=== PATIENT | male | born 2000 | race Caucasian/White ===

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

== ENCOUNTER 2023-07-22 15:31 | Emergency (ER) | payer OTHER ==
[~2023-07-22] VITALS: Ht 170.2 cm; Wt 89.9 kg
[~2023-07-22 15:31] MED LIST: IBUP80TA PO; NAPR-885 PO; OSEL75CA PO; TYLE325T5 PO
[2023-07-22] MEDS ORDERED: LIDOCAINE 2% MDV 20ML VIAL SC ONE (16:30)
[2023-07-22 17:00] VITALS: TEMP 98.4
[2023-07-22 19:32] VITALS: BP 144/74; O2SAT 99
== END 2023-07-22 19:34 | disposition home or self-care (01) ==
LOC: M ED 15:31
DX: S66.127A Laceration of flexor muscle, fascia and tendon of left little finger at wrist and hand level, initial encounter (principal); W26.0XXA Contact with knife, initial encounter; Y92.009 Unspecified place in unspecified non-institutional (private) residence as the place of occurrence of the external cause; Y93.G9 Activity, other involving cooking and grilling; Z79.899 Other long term (current) drug therapy

== ENCOUNTER → 2023-07-24 | Outpatient (CLI) | payer OTHER ==
[~2023-07-24] MED LIST changes: +PERC5TAB12 PO
== END ==
LOC: M SOG 13:54
PROVIDERS: ATTEND Orthopaedic Surgery Hand Surgery
DX: M79.644 Pain in right finger(s) (principal)

== ENCOUNTER 2023-07-25 13:40 | Day surgery (SDC) | payer OTHER ==
[~2023-07-25] VITALS: Ht 170.2 cm; Wt 90.3 kg
[~2023-07-25 13:40] MED LIST changes: -PERC5TAB12 PO
[2023-07-25] MEDS ORDERED: LR 1,000 ML IV SCH ×2 (14:20→19:00)
[2023-07-25] MEDS ORDERED: BACITRACIN OINTMENT 30GM TUBE As Ordered ONE (16:26)
[2023-07-25] MEDS ORDERED: MIDAZOLAM INJ 2MG/2ML VIAL As Ordered ONE (16:28)
[2023-07-25] MEDS ORDERED: KETOROLAC 60MG 2ML VIAL As Ordered ONE (16:29)
[2023-07-25] MEDS ORDERED: LIDOCAINE 2% 100MG/5ML SDV (FOR ANES.) As Ordered ONE (16:29)
[2023-07-25] MEDS ORDERED: propofoL 200 MG/20 ML VIAL As Ordered ONE (16:29)
[2023-07-25] MEDS ORDERED: ACETAMINOPHEN 1000MG 100ML IV BAG As Ordered ONE (16:29)
[2023-07-25] MEDS ORDERED: ONDANSETRON 4MG 2ML VIAL As Ordered ONE (16:29)
[2023-07-25] MEDS ORDERED: fentaNYL 100 MCG/2 ML INJECTION As Ordered ONE (16:29)
[2023-07-25] MEDS ORDERED: ceFAZolin 2 GM/D5W 50 ML IV BAG As Ordered ONE (16:38)
[2023-07-25] MEDS ORDERED: HYDROmorphone HCL 2MG/ML 1ML VIAL As Ordered ONE (18:35)
[2023-07-25] MEDS ORDERED: ONDANSETRON 4MG 2ML VIAL IV PRN (19:00)
[2023-07-25] MEDS ORDERED: HYDROMORPHONE HCL 0.5 MG/ 0.5 ML SYRINGE IV PRN (19:00)
[2023-07-25] MEDS ORDERED: oxyCODONE 5MG TAB PO PRN (19:00)
[2023-07-25] MEDS ORDERED: fentaNYL 100 MCG/2 ML INJECTION IV PRN (19:00)
[2023-07-25] MEDS ORDERED: PERC5TAB12 PO (19:26)
[2023-07-25 20:17] VITALS: BP 126/60; TEMP 98; O2SAT 99
== END 2023-07-25 20:19 | disposition home or self-care (01) ==
LOC: M SDC 13:40
PROVIDERS: ATTEND Orthopaedic Surgery Hand Surgery
DX: S66.121A Laceration of flexor muscle, fascia and tendon of left index finger at wrist and hand level, initial encounter (principal); X58.XXXA Exposure to other specified factors, initial encounter; Y92.89 Other specified places as the place of occurrence of the external cause; Y93.9 Activity, unspecified; Z88.2 Allergy status to sulfonamides; Z91.030 Bee allergy status
CPT/HCPCS: 26356; C1762; J0131; J0665; J0690; J1100; J1170; J1885; J2250; J2405; J3010